=== PATIENT | male | born 1945 | race Caucasian/White ===

== ENCOUNTER 2016-10-19 15:11 | Inpatient (IN) | payer BC ==
[~2016-10-19] VITALS: Ht 185.4 cm; Wt 80.7 kg
[~2016-10-19 15:11] MED LIST: ALLERGY10 M1 PO; DECLOMYCIN150 MG PO; HAIR, SKIN & N1 EAC1 PO; PROTONIX20 MG PO; Protonix PO; TENORMIN25 MG PO; Tenormin PO
[2016-10-19 16:40] LABS: HEMATOCRIT 36.8 % (38.0-50.0); MCH 36.1 PG (29.0-34.0); MCHC 36.7 G/DL (30.0-36.0); MCV 98.4 FL (86-99); MEAN PLAT.VOLUME 9.1 uM^3 (9.0-12.4); PLATELET COUNT 143 K/uL (156-360); RBC DIS.WIDTH-CV 10.7 % (11.8-14.6); RBC DIS.WIDTH-SD 38.6 % (39-53); RED BLOOD COUNT 3.74 M/uL (4.00-5.50)
[2016-10-19 16:51] LABS: CHLORIDE 83 mEq/L (99-109); POTASSIUM 3.1 mEq/L (3.7-5.4)
[2016-10-19 16:52] LABS: GLUCOSE 105 mg/dL (70-99)
[2016-10-19 16:56] LABS: GFR ESTIMATE (CALCULATED) 46 mL/min/
[2016-10-19 16:57] LABS: UREA NITROGEN (BUN) 17 mg/dL (9-23)
[2016-10-19 17:11] LABS: SODIUM 119 mEq/L (136-147)
[2016-10-19 17:12] LABS: ANION GAP 13 MEQ/L (2-14)
[2016-10-19 17:48] LABS: INFLUENZA A VIRAL ANTIGEN NEGATIVE; INFLUENZA B VIRAL ANTIGEN POSITIVE
[2016-10-19] MEDS ORDERED: PANTOPRAZOLE SO40 MG PO (18:43)
[2016-10-19] MEDS ORDERED: SODIUM CHLORIDE1 G1 PO (18:46)
[2016-10-19 22:30] VITALS: BP 157/75
[2016-10-19 22:42] VITALS: BP 157/75
[2016-10-20 00:44] LABS: CHLORIDE 89 mEq/L (99-109); POTASSIUM 3.4 mEq/L (3.7-5.4); SODIUM 123 mEq/L (136-147)
[2016-10-20 00:46] LABS: GLUCOSE 99 mg/dL (70-99)
[2016-10-20 00:47] LABS: ANION GAP 12 MEQ/L (2-14)
[2016-10-20 00:49] LABS: GFR ESTIMATE (CALCULATED) 49 mL/min/
[2016-10-20 00:50] LABS: UREA NITROGEN (BUN) 17 mg/dL (9-23)
[2016-10-20 00:54] VITALS: BP 156/79
[2016-10-20 02:20] LABS: CHLORIDE 90 mEq/L (99-109); POTASSIUM 3.1 mEq/L (3.7-5.4); SODIUM 123 mEq/L (136-147)
[2016-10-20 02:22] LABS: GLUCOSE 98 mg/dL (70-99)
[2016-10-20 02:23] LABS: ANION GAP 12 MEQ/L (2-14)
[2016-10-20 02:26] LABS: GFR ESTIMATE (CALCULATED) 53 mL/min/; UREA NITROGEN (BUN) 16 mg/dL (9-23)
[2016-10-20 07:24] LABS: HEMATOCRIT 37.6 % (38.0-50.0); MCH 35.7 PG (29.0-34.0); MCHC 36.4 G/DL (30.0-36.0); MCV 97.9 FL (86-99); MEAN PLAT.VOLUME 9.5 uM^3 (9.0-12.4); PLATELET COUNT 135 K/uL (156-360); RBC DIS.WIDTH-SD 39.5 % (39-53); RED BLOOD COUNT 3.84 M/uL (4.00-5.50); WHITE BLOOD COUNT 6.4 K/uL (4.1-10.2)
[2016-10-20 07:49] LABS: ANION GAP 11 MEQ/L (2-14); CHLORIDE 91 MEQ/L (99-109); GFR ESTIMATE (CALCULATED) > 59 mL/min/; GLUCOSE 97 mg/dL (70-99); POTASSIUM 3.1 MEQ/L (3.7-5.4); SAMPLE HEMOLYSIS CHECK 0; SAMPLE ICTERIC CHECK 0; SAMPLE LIPEMIA CHECK 0; SODIUM 123 MEQ/L (136-147); UREA NITROGEN (BUN) 15 mg/dL (9-23)
[2016-10-20 08:15] VITALS: BP 137/76
[2016-10-20 12:03] VITALS: BP 126/68
[2016-10-20 15:12] VITALS: BP 120/7
[2016-10-20 19:36] VITALS: BP 165/81
[2016-10-21 04:00] VITALS: BP 170/86
[2016-10-21 07:25] LABS: HEMATOCRIT 37.1 % (38.0-50.0); MCH 35.1 PG (29.0-34.0); MCHC 34.8 G/DL (30.0-36.0); MCV 101.1 FL (86-99); MEAN PLAT.VOLUME 9.9 uM^3 (9.0-12.4); PLATELET COUNT 137 K/uL (156-360); RBC DIS.WIDTH-CV 11.3 % (11.8-14.6); RBC DIS.WIDTH-SD 42.1 % (39-53); RED BLOOD COUNT 3.67 M/uL (4.00-5.50); WHITE BLOOD COUNT 5.5 K/uL (4.1-10.2)
[2016-10-21 07:43] LABS: ANION GAP 10 MEQ/L (2-14); CHLORIDE 93 MEQ/L (99-109); GFR ESTIMATE (CALCULATED) > 59 mL/min/; GLUCOSE 91 mg/dL (70-99); POTASSIUM 3.2 MEQ/L (3.7-5.4); SAMPLE HEMOLYSIS CHECK 0; SAMPLE ICTERIC CHECK 0; SAMPLE LIPEMIA CHECK 0; SODIUM 127 MEQ/L (136-147); UREA NITROGEN (BUN) 12 mg/dL (9-23); URIC ACID 2.8 mg/dL (3.1-9.2)
[2016-10-21 08:14] VITALS: BP 127/69
[2016-10-21 09:04] LABS: EOSINOPHIL (%) 0 % (0-5); IMMATURE GRANULOCYTE (%) 0.4 % (0.0-0.7); INSTRUMENT ABS NEUTROPHIL CT 3.5 K/uL; LYMPHOCYTE COUNT 1.1 K/uL (1.0-2.8); MONOCYTE (%) 15.5 % (3-12); MONOCYTE COUNT 0.9 K/uL (0-0.8); NEUTROPHIL (%) 63.2 % (45-76); NEUTROPHIL COUNT 3.5 K/uL (1.8-6.4); PLAT.SUFFICIENCY DECREASED
[2016-10-21 16:02] VITALS: BP 124/70
[2016-10-21 19:41] VITALS: BP 148/91
[2016-10-21 23:17] VITALS: BP 165/79
[2016-10-22 04:15] VITALS: BP 156/80
[2016-10-22 06:43] LABS: ANION GAP 11 MEQ/L (2-14); CHLORIDE 94 MEQ/L (99-109); GFR ESTIMATE (CALCULATED) > 59 mL/min/; GLUCOSE 88 mg/dL (70-99); MAGNESIUM 1.1 mg/dl (1.3-2.7); POTASSIUM 3.3 MEQ/L (3.7-5.4); SAMPLE HEMOLYSIS CHECK 0; SAMPLE ICTERIC CHECK 0; SAMPLE LIPEMIA CHECK 0; SODIUM 126 MEQ/L (136-147); UREA NITROGEN (BUN) 11 mg/dL (9-23)
[2016-10-22] MEDS ORDERED: OSELTAMIVIR PHO75 MG PO (08:31)
[2016-10-22 08:56] VITALS: BP 136/69
[2016-10-22] MEDS ORDERED: MAG-OXIDE400 MG PO (11:28)
[2016-10-22] MEDS ORDERED: K-DUR20 MEQ PO (11:28)
== END 2016-10-22 12:18 | disposition home or self-care (01) | DRG 866 ==
LOC: EME 15:11 → EDOF 19:40 → 5SOUTH 19:40
PROVIDERS: Emergency Medicine; Internal Medicine; Internal Medicine Nephrology
DX: J10.89 Influenza due to other identified influenza virus with other manifestations (principal); N17.9 Acute kidney failure, unspecified; F10.231 Alcohol dependence with withdrawal delirium; E87.1 Hypo-osmolality and hyponatremia; E86.0 Dehydration; I10 Essential (primary) hypertension; E87.6 Hypokalemia; K21.9 Gastro-esophageal reflux disease without esophagitis; Z87.891 Personal history of nicotine dependence
CPT/HCPCS: 71010; 71020; 80048; 80048 91; 81003; 82436; 82533 91; 83735; 83930; 83935; 84100; 84300; 84443; 84550; 85025; 85027; 87502; 94799; 99202; J1644; J3411; J3475; J3480; J7030